=== PATIENT | male | born 1975 | race Caucasian/White ===

== ENCOUNTER 2022-09-21 07:44 | Day surgery (SDC) | payer BC ==
[~2022-09-21] VITALS: Ht 177.8 cm; Wt 95.9 kg
[2022-09-21] VITALS (9 sets, daily range): BP systolic 115–142; BP diastolic 64–97
[2022-09-21] MEDS ORDERED: LIDOcaine 1% 30ml preserv. free vial SQ STA (07:57)
[2022-09-21] MEDS ORDERED: CARV6.256 PO (08:10)
[2022-09-21] MEDS ORDERED: SODI100035 PO (08:10)
[2022-09-21] MEDS ORDERED: SPIR25TA5 PO (08:10)
[2022-09-21] MEDS: albumin 25% 100mL bottle x 1 IV PRN ×2 (10:05→10:49)
== END 2022-09-21 11:35 | disposition home or self-care (01) ==
LOC: SSTAY O 07:44
PROVIDERS: ATTEND Radiology Diagnostic Radiology
DX: K70.31 Alcoholic cirrhosis of liver with ascites (principal); F41.9 Anxiety disorder, unspecified; E78.5 Hyperlipidemia, unspecified; I10 Essential (primary) hypertension; E87.1 Hypo-osmolality and hyponatremia; D69.6 Thrombocytopenia, unspecified; Z98.890 Other specified postprocedural states; Z98.52 Vasectomy status; F10.10 Alcohol abuse, uncomplicated; Z88.5 Allergy status to narcotic agent; Z79.899 Other long term (current) drug therapy
CPT/HCPCS: 49083; A6258; J3490; P9047; A6449

== ENCOUNTER 2022-10-08 07:33 | Day surgery (SDC) | payer BC ==
[~2022-10-08] VITALS: Ht 177.8 cm; Wt 93.1 kg
[2022-10-08] VITALS (7 sets, daily range): BP systolic 114–139; BP diastolic 67–86
[~2022-10-08 07:33] MED LIST: CARV6.256 PO; SODI100035 PO; SPIR25TA5 PO
[2022-10-08] MEDS ORDERED: SPIR25TA5 PO (08:08)
[2022-10-08] MEDS ORDERED: CARV-50 PO (08:08)
[2022-10-08] MEDS ORDERED: MULT-1085 PO (08:08)
[2022-10-08] MEDS ORDERED: LIDOcaine 1% 30ml preserv. free vial SQ ONE (08:10)
[2022-10-08] MEDS: albumin 25% 100mL bottle x 1 IV PRN ×2 (09:19→10:06)
== END 2022-10-08 10:48 | disposition home or self-care (01) ==
LOC: SSTAY O 07:33
PROVIDERS: ATTEND Radiology Vascular & Interventional Radiology
DX: K70.31 Alcoholic cirrhosis of liver with ascites (principal); F41.9 Anxiety disorder, unspecified; K50.90 Crohn's disease, unspecified, without complications; E78.5 Hyperlipidemia, unspecified; I10 Essential (primary) hypertension; F10.10 Alcohol abuse, uncomplicated; Z98.52 Vasectomy status; Z98.890 Other specified postprocedural states; Z88.5 Allergy status to narcotic agent; Z79.899 Other long term (current) drug therapy; Z98.1 Arthrodesis status; Z90.79 Acquired absence of other genital organ(s)
CPT/HCPCS: 49083; J3490; P9047

== ENCOUNTER 2022-10-15 07:33 | Day surgery (SDC) | payer BC ==
[2022-10-15] VITALS (10 sets, daily range): BP systolic 96–116; BP diastolic 54–74
[~2022-10-15] VITALS: Ht 177.8 cm; Wt 90.4 kg
[~2022-10-15 07:33] MED LIST changes: +CARV-50 PO; -CARV6.256 PO; +LIDOcaine 1% 30ml preserv. free vial SQ STA; +MULT-1085 PO
[2022-10-15] MEDS: albumin 25% 100mL bottle x 1 IV PRN ×2 (09:18→09:19)
== END 2022-10-15 11:05 | disposition home or self-care (01) ==
LOC: SSTAY O 07:33
PROVIDERS: ATTEND Radiology Vascular & Interventional Radiology
DX: K70.31 Alcoholic cirrhosis of liver with ascites (principal); F41.9 Anxiety disorder, unspecified; E78.5 Hyperlipidemia, unspecified; E87.1 Hypo-osmolality and hyponatremia; I10 Essential (primary) hypertension; D69.6 Thrombocytopenia, unspecified; F10.20 Alcohol dependence, uncomplicated; Z98.890 Other specified postprocedural states; Z98.52 Vasectomy status; Z79.899 Other long term (current) drug therapy
CPT/HCPCS: 49083; J3490; P9047; A6258; A6449

== ENCOUNTER 2022-10-22 07:26 | Day surgery (SDC) | payer BC ==
[~2022-10-22] VITALS: Ht 177.8 cm; Wt 89.4 kg
[2022-10-22] VITALS (8 sets, daily range): BP systolic 112–138; BP diastolic 53–87
[~2022-10-22 07:26] MED LIST changes: +LIDOcaine 1% 30ml preserv. free vial IJ STA; -LIDOcaine 1% 30ml preserv. free vial SQ STA
[2022-10-22] MEDS ORDERED: albumin (human) 25% 100 ML IV solution IV ONE (08:55)
[2022-10-22] MEDS ORDERED: albumin 25% 100mL bottle x 1 IV PRN (10:05)
== END 2022-10-22 10:15 | disposition home or self-care (01) ==
LOC: SSTAY O 07:26
PROVIDERS: ATTEND Radiology Diagnostic Radiology
DX: K70.31 Alcoholic cirrhosis of liver with ascites (principal); F41.9 Anxiety disorder, unspecified; E78.5 Hyperlipidemia, unspecified; I10 Essential (primary) hypertension; E87.1 Hypo-osmolality and hyponatremia; D69.6 Thrombocytopenia, unspecified; K50.90 Crohn's disease, unspecified, without complications; F10.20 Alcohol dependence, uncomplicated; Z98.890 Other specified postprocedural states; Z98.52 Vasectomy status; Z79.899 Other long term (current) drug therapy; Z88.5 Allergy status to narcotic agent
CPT/HCPCS: 49083; P9047; A6258

== ENCOUNTER 2022-10-29 07:28 | Day surgery (SDC) | payer BC ==
[2022-10-29] VITALS (8 sets, daily range): BP systolic 95–129; BP diastolic 50–70
[~2022-10-29] VITALS: Ht 55.9 cm; Wt 90.9 kg
[~2022-10-29 07:28] MED LIST changes: -LIDOcaine 1% 30ml preserv. free vial IJ STA
[2022-10-29] MEDS ORDERED: LIDOcaine 1% 30ml preserv. free vial SQ STA (07:44)
[2022-10-29] MEDS: albumin 25% 100mL bottle x 1 IV PRN ×2 (08:23→09:39)
== END 2022-10-29 10:35 | disposition home or self-care (01) ==
LOC: SSTAY O 07:28
PROVIDERS: ATTEND Radiology Vascular & Interventional Radiology
DX: K70.31 Alcoholic cirrhosis of liver with ascites (principal); F41.9 Anxiety disorder, unspecified; K50.90 Crohn's disease, unspecified, without complications; E78.5 Hyperlipidemia, unspecified; I10 Essential (primary) hypertension; D69.6 Thrombocytopenia, unspecified; E87.1 Hypo-osmolality and hyponatremia; F10.10 Alcohol abuse, uncomplicated; Z98.890 Other specified postprocedural states; Z79.899 Other long term (current) drug therapy; Z98.52 Vasectomy status
CPT/HCPCS: 49083; J3490; P9047; A6258

== ENCOUNTER 2022-11-05 07:24 | Day surgery (SDC) | payer BC ==
[~2022-11-05] VITALS: Ht 177.8 cm; Wt 91.1 kg
[2022-11-05] MEDS ORDERED: LIDOcaine 1% 30ml preserv. free vial SQ ONE (07:40)
[2022-11-05 08:02] VITALS: BP 121/69
[2022-11-05] MEDS ORDERED: albumin 25% 100mL bottle x 1 IV PRN (08:05)
[2022-11-05 08:50] VITALS: BP 131/87
[2022-11-05 09:05] VITALS: BP 125/72
[2022-11-05 09:20] VITALS: BP 119/73
[2022-11-05 09:25] VITALS: BP 117/62
[2022-11-05 09:40] VITALS: BP 114/68
== END 2022-11-05 09:40 | disposition home or self-care (01) ==
LOC: SSTAY O 07:24
PROVIDERS: ATTEND Radiology Vascular & Interventional Radiology
DX: K70.31 Alcoholic cirrhosis of liver with ascites (principal); K50.90 Crohn's disease, unspecified, without complications; F41.9 Anxiety disorder, unspecified; E78.5 Hyperlipidemia, unspecified; I10 Essential (primary) hypertension; E87.1 Hypo-osmolality and hyponatremia; D69.6 Thrombocytopenia, unspecified; F10.10 Alcohol abuse, uncomplicated; Z98.52 Vasectomy status; Z98.890 Other specified postprocedural states; Z88.5 Allergy status to narcotic agent; Z79.899 Other long term (current) drug therapy
CPT/HCPCS: 49083; J3490; P9047; A6258; A6402

== ENCOUNTER 2022-11-12 07:02 | Day surgery (SDC) | payer BC ==
[~2022-11-12] VITALS: Ht 177.8 cm; Wt 93.2 kg
[~2022-11-12 07:02] MED LIST changes: -CARV-50 PO; +LIDOcaine 1% 30ml preserv. free vial SQ STA
[2022-11-12 07:15] VITALS: BP 131/74
[2022-11-12] MEDS ORDERED: B 12 (07:18)
[2022-11-12] MEDS ORDERED: albumin 25% 100mL bottle x 1 IV PRN (07:20)
[2022-11-12 09:00] VITALS: BP 130/80
[2022-11-12 09:15] VITALS: BP 130/76
[2022-11-12 09:30] VITALS: BP 123/68
[2022-11-12 09:45] VITALS: BP 112/96
[2022-11-12 10:00] VITALS: BP 124/124
== END 2022-11-12 10:05 | disposition home or self-care (01) ==
LOC: SSTAY O 07:02
PROVIDERS: ATTEND Radiology Vascular & Interventional Radiology
DX: K70.31 Alcoholic cirrhosis of liver with ascites (principal); F41.9 Anxiety disorder, unspecified; K50.90 Crohn's disease, unspecified, without complications; E87.1 Hypo-osmolality and hyponatremia; I10 Essential (primary) hypertension; E78.5 Hyperlipidemia, unspecified; D69.6 Thrombocytopenia, unspecified; F10.20 Alcohol dependence, uncomplicated; Z98.890 Other specified postprocedural states; Z98.52 Vasectomy status; Z79.899 Other long term (current) drug therapy; Z88.5 Allergy status to narcotic agent
CPT/HCPCS: 49083; J3490; P9047; A6258; A6449

== ENCOUNTER 2022-11-20 06:38 | Day surgery (SDC) | payer BC ==
[~2022-11-20] VITALS: Ht 177.8 cm; Wt 95.8 kg
[~2022-11-20 06:38] MED LIST changes: +B 12; -LIDOcaine 1% 30ml preserv. free vial SQ STA
[2022-11-20] MEDS ORDERED: albumin 25% 100mL bottle x 1 IV PRN (06:50)
[2022-11-20] MEDS ORDERED: LIDOcaine 1% 30ml preserv. free vial SQ STA (06:52)
[2022-11-20] MEDS ORDERED: MILK175C5 (07:13)
[2022-11-20] MEDS ORDERED: FERR236T3 PO (07:13)
[2022-11-20 07:29] VITALS: BP 126/80
[2022-11-20 08:40] VITALS: BP 139/80
[2022-11-20 08:55] VITALS: BP 115/74
[2022-11-20 09:10] VITALS: BP 124/72
[2022-11-20 09:25] VITALS: BP 122/69
[2022-11-20 09:40] VITALS: BP 119/73
== END 2022-11-20 09:40 | disposition home or self-care (01) ==
LOC: SSTAY O 06:38
PROVIDERS: ATTEND Radiology Vascular & Interventional Radiology
DX: K70.31 Alcoholic cirrhosis of liver with ascites (principal); E78.5 Hyperlipidemia, unspecified; I10 Essential (primary) hypertension; Z98.890 Other specified postprocedural states; Z98.52 Vasectomy status; Z79.899 Other long term (current) drug therapy
CPT/HCPCS: 49083; J3490; P9047; A6258

== ENCOUNTER 2022-11-27 06:41 | Day surgery (SDC) | payer BC ==
[~2022-11-27] VITALS: Ht 177.8 cm; Wt 95.7 kg
[~2022-11-27 06:41] MED LIST changes: +FERR236T3 PO; +MILK175C5
[2022-11-27] MEDS ORDERED: LIDOcaine 1% 30ml preserv. free vial SQ STA (06:45)
[2022-11-27 07:00] VITALS: BP 133/87
[2022-11-27] MEDS: albumin 25% 100mL bottle x 1 IV PRN ×2 (08:24→09:30)
[2022-11-27 08:45] VITALS: BP 132/79
[2022-11-27 09:00] VITALS: BP 126/76
[2022-11-27 09:15] VITALS: BP 99/59
[2022-11-27 09:30] VITALS: BP 121/75
== END 2022-11-27 10:20 | disposition home or self-care (01) ==
LOC: SSTAY O 06:41
PROVIDERS: ATTEND Radiology Vascular & Interventional Radiology
DX: K70.31 Alcoholic cirrhosis of liver with ascites (principal); F41.9 Anxiety disorder, unspecified; E78.5 Hyperlipidemia, unspecified; I10 Essential (primary) hypertension; Z98.890 Other specified postprocedural states; Z98.52 Vasectomy status; Z79.899 Other long term (current) drug therapy
CPT/HCPCS: 49083; J3490; P9047; A6258

== ENCOUNTER 2022-12-04 07:03 | Day surgery (SDC) | payer BC ==
[~2022-12-04] VITALS: Ht 177.8 cm; Wt 93.2 kg
[2022-12-04 07:20] VITALS: BP 127/73
[2022-12-04] MEDS ORDERED: LIDOcaine 1% 30ml preserv. free vial SQ STA (07:33)
[2022-12-04] MEDS ORDERED: FURO40TA4 PO (07:37)
[2022-12-04] MEDS ORDERED: SPIR100T5 PO (07:37)
[2022-12-04] MEDS ORDERED: albumin 25% 100mL bottle x 1 IV PRN (07:45)
[2022-12-04 08:45] VITALS: BP 115/72
[2022-12-04 09:00] VITALS: BP 120/78
[2022-12-04 09:15] VITALS: BP 119/73
[2022-12-04 09:20] VITALS: BP 117/81
== END 2022-12-04 09:20 | disposition home or self-care (01) ==
LOC: SSTAY O 07:03
PROVIDERS: ATTEND Radiology Vascular & Interventional Radiology
DX: K70.31 Alcoholic cirrhosis of liver with ascites (principal); F41.9 Anxiety disorder, unspecified; E78.5 Hyperlipidemia, unspecified; I10 Essential (primary) hypertension; E87.1 Hypo-osmolality and hyponatremia; D69.6 Thrombocytopenia, unspecified; Z98.52 Vasectomy status; Z98.890 Other specified postprocedural states; F10.20 Alcohol dependence, uncomplicated; Z79.899 Other long term (current) drug therapy
CPT/HCPCS: 49083; J3490; P9047; A6258; A6449

== ENCOUNTER 2022-12-14 07:02 | Day surgery (SDC) | payer BC ==
[~2022-12-14] VITALS: Ht 177.8 cm; Wt 92.4 kg
[~2022-12-14 07:02] MED LIST changes: +FURO40TA4 PO; +SPIR100T5 PO; -SPIR25TA5 PO
[2022-12-14 07:11] VITALS: BP 126/76
[2022-12-14] MEDS ORDERED: LIDOcaine 1% 30ml preserv. free vial SQ STA (07:19)
[2022-12-14] MEDS ORDERED: albumin 25% 100mL bottle x 1 IV PRN (07:20)
[2022-12-14 08:21] VITALS: BP 136/102
[2022-12-14 08:34] VITALS: BP 121/78
[2022-12-14 08:48] VITALS: BP 116/73
[2022-12-14 09:04] VITALS: BP 111/84
[2022-12-14 09:18] VITALS: BP 121/72
== END 2022-12-14 09:45 | disposition home or self-care (01) ==
LOC: SSTAY O 07:02
PROVIDERS: ATTEND Radiology Vascular & Interventional Radiology
DX: K70.31 Alcoholic cirrhosis of liver with ascites (principal); F41.9 Anxiety disorder, unspecified; K50.90 Crohn's disease, unspecified, without complications; E78.5 Hyperlipidemia, unspecified; I10 Essential (primary) hypertension; E87.1 Hypo-osmolality and hyponatremia; D69.6 Thrombocytopenia, unspecified; F10.20 Alcohol dependence, uncomplicated; Z98.890 Other specified postprocedural states; Z98.52 Vasectomy status; Z88.5 Allergy status to narcotic agent; Z79.899 Other long term (current) drug therapy
CPT/HCPCS: 49083; J3490; P9047; A6258; A6449

== ENCOUNTER 2022-12-18 07:24 | Day surgery (SDC) | payer BC ==
[~2022-12-18] VITALS: Ht 177.8 cm; Wt 89.7 kg
[2022-12-18 07:35] VITALS: BP 122/75
[2022-12-18] MEDS ORDERED: albumin 25% 100mL bottle x 1 IV PRN (07:40)
[2022-12-18 08:50] VITALS: BP 121/77
[2022-12-18] MEDS ORDERED: LIDOcaine 1% (10mg/ml)w/preservative inj. 20ml MDV SQ ONE (09:00)
[2022-12-18 09:05] VITALS: BP 114/83
[2022-12-18 09:20] VITALS: BP 142/49
[2022-12-18 09:30] VITALS: BP 110/70
[2022-12-18 09:45] VITALS: BP 110/68
== END 2022-12-18 09:45 | disposition home or self-care (01) ==
LOC: SSTAY O 07:24
PROVIDERS: ATTEND Radiology Vascular & Interventional Radiology
DX: K70.31 Alcoholic cirrhosis of liver with ascites (principal); F41.9 Anxiety disorder, unspecified; F10.20 Alcohol dependence, uncomplicated; I10 Essential (primary) hypertension; E78.5 Hyperlipidemia, unspecified; E87.1 Hypo-osmolality and hyponatremia; D69.6 Thrombocytopenia, unspecified; K50.90 Crohn's disease, unspecified, without complications; Z98.890 Other specified postprocedural states; Z98.52 Vasectomy status
CPT/HCPCS: 49083; J3490; P9047; A6258; A6449

== ENCOUNTER 2022-12-25 07:26 | Day surgery (SDC) | payer BC ==
[~2022-12-25] VITALS: Ht 177.8 cm; Wt 93.8 kg
[2022-12-25] VITALS (7 sets, daily range): BP systolic 109–140; BP diastolic 60–80
[2022-12-25] MEDS ORDERED: albumin 25% 100mL bottle x 1 IV PRN (07:40)
[2022-12-25] MEDS ORDERED: LIDOcaine 1%/PF 5ML 10 MG/ML VIAL SQ ONE (07:45)
== END 2022-12-25 10:35 | disposition home or self-care (01) ==
LOC: SSTAY O 07:26
PROVIDERS: ATTEND Radiology Vascular & Interventional Radiology
DX: K70.31 Alcoholic cirrhosis of liver with ascites (principal); F41.9 Anxiety disorder, unspecified; E78.5 Hyperlipidemia, unspecified; I10 Essential (primary) hypertension; E87.1 Hypo-osmolality and hyponatremia; D69.6 Thrombocytopenia, unspecified; K50.90 Crohn's disease, unspecified, without complications; Z98.890 Other specified postprocedural states; Z98.52 Vasectomy status; F10.20 Alcohol dependence, uncomplicated; Z79.899 Other long term (current) drug therapy; Z88.5 Allergy status to narcotic agent
CPT/HCPCS: 49083; J3490; P9047; A6258; A6449

== ENCOUNTER 2023-01-01 06:55 | Day surgery (SDC) | payer BC ==
[~2023-01-01] VITALS: Ht 177.8 cm; Wt 93.8 kg
[2023-01-01] MEDS ORDERED: LIDOcaine 1%/PF 5ML 10 MG/ML VIAL SQ ONE (07:00)
[2023-01-01] MEDS ORDERED: albumin 25% 100mL bottle x 1 IV PRN (07:15)
[2023-01-01 07:16] VITALS: BP 118/72
[2023-01-01 08:55] VITALS: BP 129/72
[2023-01-01 09:10] VITALS: BP 124/76
[2023-01-01 09:25] VITALS: BP 129/75
[2023-01-01 09:30] VITALS: BP 122/75
[2023-01-01 09:45] VITALS: BP 120/76
== END 2023-01-01 09:45 | disposition home or self-care (01) ==
LOC: SSTAY O 06:55
PROVIDERS: ATTEND Radiology Diagnostic Radiology
DX: K70.31 Alcoholic cirrhosis of liver with ascites (principal); F41.9 Anxiety disorder, unspecified; K50.90 Crohn's disease, unspecified, without complications; F10.20 Alcohol dependence, uncomplicated; I10 Essential (primary) hypertension; E78.5 Hyperlipidemia, unspecified; E87.1 Hypo-osmolality and hyponatremia; D69.6 Thrombocytopenia, unspecified; Z88.5 Allergy status to narcotic agent; Z98.890 Other specified postprocedural states; Z98.52 Vasectomy status; Z79.899 Other long term (current) drug therapy
CPT/HCPCS: 49083; J3490; P9047; A6258; A6449

== ENCOUNTER 2023-01-07 07:08 | Day surgery (SDC) | payer BC ==
[~2023-01-07] VITALS: Ht 177.8 cm; Wt 93.8 kg
[2023-01-07 07:47] VITALS: BP 126/80
[2023-01-07] MEDS ORDERED: albumin 25% 100mL bottle x 1 IV PRN (07:55)
[2023-01-07] MEDS ORDERED: LIDOcaine 1%/PF 5ML 10 MG/ML VIAL IJ ONE (08:10)
[2023-01-07 08:42] VITALS: BP 134/78
--- NOTE | 2023-01-07 10:21 | NUR ---
Paracentesis not performed,not enough fluid to drain
== END 2023-01-07 08:50 | disposition home or self-care (01) ==
LOC: SSTAY O 07:08
PROVIDERS: ATTEND Radiology Vascular & Interventional Radiology
DX: K70.31 Alcoholic cirrhosis of liver with ascites (principal); Z53.8 Procedure and treatment not carried out for other reasons; F41.9 Anxiety disorder, unspecified; K50.90 Crohn's disease, unspecified, without complications; E78.5 Hyperlipidemia, unspecified; I10 Essential (primary) hypertension; E87.1 Hypo-osmolality and hyponatremia; D69.6 Thrombocytopenia, unspecified; F10.20 Alcohol dependence, uncomplicated; Z98.890 Other specified postprocedural states; Z98.52 Vasectomy status; Z79.899 Other long term (current) drug therapy
CPT/HCPCS: 76705; A6258; A6449

== ENCOUNTER 2023-01-14 06:55 | Day surgery (SDC) | payer BC ==
[~2023-01-14] VITALS: Ht 177.8 cm; Wt 95.7 kg
[2023-01-14] MEDS ORDERED: albumin 25% 100mL bottle x 1 IV PRN (07:25)
[2023-01-14] MEDS ORDERED: LIDOcaine 1%/PF 5ML 10 MG/ML VIAL SQ ONE (07:25)
[2023-01-14 08:00] VITALS: BP 128/79
[2023-01-14 08:40] VITALS: BP 129/95
[2023-01-14 08:55] VITALS: BP 126/77
[2023-01-14 09:10] VITALS: BP 128/79
[2023-01-14 09:30] VITALS: BP 128/79
[2023-01-14 09:45] VITALS: BP 130/80
== END 2023-01-14 10:00 | disposition home or self-care (01) ==
LOC: SSTAY O 06:55
PROVIDERS: ATTEND Radiology Vascular & Interventional Radiology
DX: K70.31 Alcoholic cirrhosis of liver with ascites (principal); K50.90 Crohn's disease, unspecified, without complications; F41.9 Anxiety disorder, unspecified; E78.5 Hyperlipidemia, unspecified; I10 Essential (primary) hypertension; E87.1 Hypo-osmolality and hyponatremia; D69.6 Thrombocytopenia, unspecified; F10.20 Alcohol dependence, uncomplicated; Z88.5 Allergy status to narcotic agent; Z98.890 Other specified postprocedural states; Z98.52 Vasectomy status; Z79.899 Other long term (current) drug therapy
CPT/HCPCS: 49083; J3490; P9047; A6258; A6449

== ENCOUNTER 2023-02-02 08:38 | Emergency (ER) | payer BC ==
[~2023-02-02] VITALS: Ht 177.8 cm; Wt 89.5 kg
[~2023-02-02 08:38] MED LIST changes: -FERR236T3 PO; +FOLI0.4T6 PO; -SODI100035 PO
[2023-02-02] MEDS ORDERED: ondansetron/PF 4mg/2ml inj IV ONE (09:20)
[2023-02-02] MEDS ORDERED: fentaNYL/PF 50MCG/1 ML 2ML syringe IV ONE ×3 (09:20→10:20)
[2023-02-02 10:06] LABS: EOSINOPHILS # (AUTO) 0.1 X10'3 (0-0.9); HEMATOCRIT 33.5 % (42.0-52.0); HEMOGLOBIN 11.6 g/dl (14.0-17.9); LYMPHOCYTES # (AUTO) 0.8 X10'3 (1.1-4.8); LYMPHOCYTES % (AUTO) 18.6 % (21-51); MEAN CORPUSCULAR HEMOGLOBIN 37.4 PG (27.0-31.0); MEAN CORPUSCULAR HGB CONC 34.7 g/dL (33.0-36.5); MEAN CORPUSCULAR VOLUME 107.6 FL (78-98); MEAN PLATELET VOLUME 7.9 FL (7.4-10.4); MONOCYTES # (AUTO) 1.3 X10'3 (0-0.9); MONOCYTES % (AUTO) 28.5 % (2-12); NEUTROPHILS # (AUTO) 2.2 X10'3 (1.8-7.7); NEUTROPHILS % (AUTO) 49.9 % (42-75); PLATELET COUNT 136 X10'3 (140-440); RED BLOOD COUNT 3.11 X10'6 (4.70-6.10); RED CELL DISTRIBUTION WIDTH 14.6 % (11.5-14.5); WHITE BLOOD COUNT 4.4 X10'3 (4.5-11.0)
[2023-02-02 10:32] LABS: ALANINE AMINOTRANSFERASE 33 U/L (12-78); ALBUMIN 3.1 G/DL (3.4-5.0); ALBUMIN/GLOBULIN RATIO 0.9 (1.1-1.5); ALKALINE PHOSPHATASE 90 IU/L (46-116); ANION GAP 10 (8-16); ASPARTATE AMINO TRANSFERASE 59 U/L (10-37); BILIRUBIN,TOTAL 1.1 MG/DL (0.1-1.0); BLOOD UREA NITROGEN 17 MG/DL (7-18); BUN/CREATININE RATIO 22.1 (10.0-20.0); CALCIUM 8.9 MG/DL (8.5-10.1); CHLORIDE 100 MMOL/L (99-107); CREATININE 0.77 MG/DL (0.60-1.10); GLUCOSE 104 MG/DL (70-104); LIPASE 195 U/L (73-393); POTASSIUM 3.8 MMOL/L (3.5-5.1); SODIUM 133 MMOL/L (135-145); TOTAL CARBON DIOXIDE 23.5 MMOL/L (24-32); TOTAL PROTEIN 6.7 G/DL (6.4-8.2); eGFR > 90 ML/MIN
[2023-02-02 11:35] LABS: CLARITY,URINE CLEAR (Clear); COLOR,URINE YELLOW (Yellow); GLUCOSE, URINE NEGATIVE (Neg); KETONES,URINE NEGATIVE (Neg); LEUKOCYTE ESTERASE ,URINE NEGATIVE (Neg); NITRITES, URINE NEGATIVE (Neg); OCCULT BLOOD,URINE NEGATIVE (Neg); PROTEIN,URINE NEGATIVE (Neg); UROBILINOGEN,URINE 0.2 E.U/dL (0.2-1.0)
[2023-02-02 11:38] LABS: UA COLLECTION TYPE CLN CATCH MIDSTREAM
[2023-02-02 11:41] VITALS: BP 117/69
[2023-02-02 12:46] LABS: PLATELET ESTIMATE DECREASED; TOTAL CELLS COUNTED 100
== END 2023-02-02 11:49 | disposition home or self-care (01) ==
LOC: ER 08:38
DX: K42.9 Umbilical hernia without obstruction or gangrene (principal); Z88.5 Allergy status to narcotic agent
CPT/HCPCS: 74176; 80053; 81003; 83690; 85007; 85025; 96374; 96375; 96376; 99285; J2405; J3010; L0220

== ENCOUNTER 2023-02-03 12:23 | Day surgery (SDC) | payer BC ==
[2023-02-03] VITALS (8 sets, daily range): BP systolic 128–149; BP diastolic 71–90
[~2023-02-03] VITALS: Ht 177.8 cm; Wt 89.1 kg
[~2023-02-03 12:23] MED LIST changes: +famotidine 20mg tablet PO ONE; +ringers solution, lacted 1,000 ML IV SCH
[2023-02-03] MEDS ORDERED: cefazolin 2gm/D5W 100mL 100 ML IV ONE (13:30)
[2023-02-03 14:19] LABS: PRE OP PARTIAL THROMB. TIME 31 SECONDS (22-32)
[2023-02-03] MEDS ORDERED: midazolam 1 mg/ML 2ml injection ONE (17:10)
[2023-02-03] MEDS ORDERED: fentaNYL/PF 50MCG/1 ML 2ML syringe ONE (17:10)
[2023-02-03] MEDS ORDERED: sevoflurane 250ml liquid IH ONE (17:12)
[2023-02-03] MEDS ORDERED: propofol inj 20 ML IV ONE (17:14)
[2023-02-03] MEDS ORDERED: dexamethasone sod phosphate 4mg/ml inj. ONE (17:14)
[2023-02-03] MEDS ORDERED: rocuronium 10mg/ml inj IV ONE (17:14)
[2023-02-03] MEDS ORDERED: LIDOcaine 2% (20mg/ml) 5ml vial ONE (17:14)
[2023-02-03] MEDS ORDERED: bacitracin 15gm ointment TP ONE (17:49)
[2023-02-03] MEDS ORDERED: BUPIVAcaine/PF 2.5 mg/ml (0.25%) 30ml vial IJ ONE (17:55)
[2023-02-03] MEDS ORDERED: glycopyrrolate 0.2mg/ml inj ONE (18:10)
[2023-02-03] MEDS ORDERED: ondansetron/PF 4mg/2ml inj ONE (18:10)
[2023-02-03] MEDS ORDERED: neostigmine methylsulfate 1 MG/ML 10ml vial ONE (18:10)
[2023-02-03] MEDS ORDERED: meperidine/PF 25mg/ml syringe ONE ×2 (18:11→18:29)
[2023-02-03] MEDS ORDERED: ondansetron/PF 4mg/2ml inj IV PRN (18:30)
[2023-02-03] MEDS ORDERED: morphine 2 MG/ML inj. syringe IV PRN (18:30)
[2023-02-03] MEDS ORDERED: meperidine/PF 25mg/ml syringe IV PRN ×3 (18:30)
[2023-02-03] MEDS ORDERED: proCHLORperazine 10 MG/2 ml inj IV PRN (18:30)
[2023-02-03] MEDS ORDERED: ringers solution, lacted 1,000 ML IV SCH (18:30)
[2023-02-03] MEDS ORDERED: morphine 4 MG/ML inj SYRINge IV PRN (18:30)
[2023-02-03] MEDS ORDERED: HYDROcodone/acetaminophen 10/325mg tab PO ONE (18:45)
--- NOTE | 2023-02-03 19:15 | NUR ---
PATIENT A&OX4, 11/30 PAIN, V/S WNL, CSM INTACT, LAP SITES STITCHED AND DERMABONDED CLOSED CLEAN AND DRY AND SMALL 2X2 DRESSING TO ABDOMEN CDI. SCD D/C, PIV D/C. I HAVE REVIEWED D/C INSTRUCTIONS WITH PATIENT AND THEY HAVE VERBALIZED UNDERSTANDING AND PATIENT HAS BEEN D/C HOME WITH ALL BELONGINGS AND GAVE TRANSPORT HOME.
== END 2023-02-03 19:15 | disposition home or self-care (01) ==
LOC: PAS 12:23
PROVIDERS: ATTEND Surgery
DX: K42.0 Umbilical hernia with obstruction, without gangrene (principal); K74.60 Unspecified cirrhosis of liver; R18.8 Other ascites; Z79.899 Other long term (current) drug therapy; F10.91 Alcohol use, unspecified, in remission; Z98.890 Other specified postprocedural states; Z98.818 Other dental procedure status; Z88.5 Allergy status to narcotic agent
CPT/HCPCS: 36415; 49594; 82948; 85610; 85730; 93005; J0690; J1100; J2175; J2250; J2270; J2405; J2704; J2710; J3010; J3490; J7030; J7120; Z7506; Z7512; A4618; A6449; A7000